=== PATIENT | female | born 1930 | race Caucasian/White ===

== ENCOUNTER 2018-09-28 21:10 | Observation (INO) | payer OTHER ==
[~2018-09-28] VITALS: Ht 152.4 cm; Wt 75.7 kg
[~2018-09-28 21:10] MED LIST: 5-HTP100 MG PO; ASPIR 8181 MG PO; ATORVASTATIN CA40 MG PO; B-121000 MC2 PO; BRILINTA90 MG PO; CALCITRIOL0.25 MCG PO; CARVEDILOL12.5 MG PO; CLONIDINE0.1 PO; COREG6.25 MG PO; COROMEGA 3 + D2.5 GM PO; COZAAR 50 MG TA50 M2 PO; FLEXERIL PO; IMDUR 30 MG TAB30 M1 PO; LIORESAL 10 MG10 MG PO; LIPITOR 20 MG T20 M1 PO; MAGOX 400400 MG PO; NITROGLYCERIN0.4 MG SUBLING; NORVASC10 MG PO; PERCOCET 10-321 EACH PO; PLAVIX 75 MG TA75 M1 PO; PRESERVISION A1 EAC2 PO; PRESERVISION T1 EACH PO; PROTONIX40 M1 PO; TYLENOL325 MG PO; VASOTEC20 MG PO; VITAMIN D1000 UNI1 PO; VITAMIN D32000 UNI1 PO; VITAMINC500 PO
[2018-09-28] MEDS ORDERED: NEURONTIN100 MG PO (21:37)
[2018-09-28 22:35] LABS: ABSOLUTE BASOPHILS 0.1 thou/uL (0.0-0.2); ABSOLUTE EOSINOPHILS 0.1 thou/uL (0.0-0.7); ABSOLUTE LYMPHOCYTES 2.8 thou/uL (0.8-5.3); ABSOLUTE MONOCYTES 0.6 thou/uL (0.0-1.2); ABSOLUTE NEUTROPHILS 5.1 thou/uL (1.6-8.1); BASOPHILS 0.7 %; EOSINOPHILS 1.5 %; HEMATOCRIT 36.6 % (37.0-47.0); HEMOGLOBIN 12.5 gm/dL (12.0-15.0); LYMPHOCYTES 32.2 %; MCH 31.5 pg (26.0-34.0); MCHC 34.2 g/dL (28.0-37.0); MCV 91.9 fL (80.0-100.0); MONOCYTES 6.9 %; MPV 7.8 fl. (7.2-11.1); NUCLEATED RBCS 0 /100WBC; PLATELET COUNT* 224 thou/uL (150-400); POLYS 58.7 %; RBC 3.98 mil/uL (4.20-5.00); RDW-CV 13.6 % (10.5-14.5); WBC 8.6 thou/uL (4.0-11.0)
[2018-09-28 22:44] LABS: ANION GAP 8 mmol/L (7-16); BUN 13 mg/dL (7-18); CALCIUM 8.7 mg/dL (8.5-10.1); CHLORIDE 101 mmol/L (98-107); CO2 27 mmol/L (21-32); GLUCOSE 108 mg/dL (70-99); POTASSIUM 3.6 mmol/L (3.5-5.1); SODIUM 136 mmol/L (136-145)
[2018-09-28 22:45] LABS: PROTIME 10.7 Seconds (9.20-11.50)
[2018-09-28 22:55] LABS: ALBUMIN 3.6 g/dL (3.4-5.0); ALKALINE PHOSPHATASE 68 U/L (46-116); NT-PRO BRAIN NAT PEPTIDE 194 pg/mL (<300); SGOT 23 U/L (15-37); SGPT 24 U/L (30-65); TOTAL BILIRUBIN 0.4 mg/dL (<0.1-1.0); TOTAL PROTEIN 6.8 g/dL (6.4-8.2); TROPONIN-I LEVEL <0.06 ng/mL (<0.06)
[2018-09-29 00:44] LABS: URINE BILIRUBIN NEGATIVE (Negative); URINE BLOOD NEGATIVE (Negative); URINE CLARITY CLEAR; URINE COLOR YELLOW; URINE GLUCOSE-RANDOM NEGATIVE (Negative); URINE KETONES NEGATIVE (Negative); URINE LEUKOCYTES-REFLEX NEGATIVE (Negative); URINE NITRITE-REFLEX NEGATIVE (Negative); URINE PROTEIN NEGATIVE (Negative); URINE UROBILINOGEN 0.2 E.U./dl (0.2-1.0)
[2018-09-29 02:53] VITALS: BP 181/59
[2018-09-29 03:08] VITALS: BP 183/67
[2018-09-29 07:51] VITALS: BP 154/60
--- NOTE | 2018-09-29 09:25 | NUR ---
ASSUMED CARE OF PT THIS AM AROUND 0715- MAXILLOFACIAL PATHOLOGY IN PLACE ORDERED, TRACING A-PACED WITH NOTEDN PACEMAKER- UPON ASSESSMENT PT NOTED TO BE RESTING IN BED- PT A&O X4- CONTINENT OF BOWEL AND BLADDER- SBA WITH TRANSFERS FOR SAFETY- LCTA, COUGH NOTED- RESP EVEN AND UN-LABORED- VSS, O2 SAT 94% ON RA- ABDOMEN SOFT/ROUND/NON-TENDER, BS X4 QUADS- LAST BM REPORTED ON PRIOR SHIFT- IV NOTED TO RIGHT HAND AND LEFT AC INTACT AND SL- 2+ BLE EDEMA NOTED, LEG ELEVATION ENCOURAGED- CARDIOLOGY HERE TO ASSESS THIS AM WITH AMLODIPINE ADDED AND HYDRALAZINE RESTARTED- OKAY TO D/C PER CARDIOLOGY THIS AFTERNOON IF BP STABLE- CTA COMPLETED WITH RESULTS NOTED IN [employer]- US OF CAROTIDS ORDERED- PT DENIES ANY C/O PAIN/DISCOMFORT AT THIS TIME- EXPRESSES WISHES TO GO HOME TODAY- CALL LIGHT AND PERSONAL BELONGINGS WITH IN REACH- HOURLY ROUNDS IN PLACE R/T SAFETY/NEEDS- ALL NEEDS MET AT THIS TIME-WCTM
[2018-09-29] MEDS ORDERED: HYDROCHLOROTHIA25 M1 PO (11:10)
[2018-09-29] MEDS ORDERED: AMLODIPINE BESYL5 M1 PO (11:10)
[2018-09-29] MEDS ORDERED: MELATONIN3 MG PO (11:12)
[2018-09-29] MEDS ORDERED: APAP650 PO (11:12)
[2018-09-29] MEDS ORDERED: CARAFATE 1 GM TA1 G1 PO (11:14)
[2018-09-29 11:40] VITALS: BP 154/60
[2018-09-29 12:00] VITALS: BP 156/60
--- NOTE | 2018-09-29 12:07 | EKG ---
[place] [address] ELECTROCARDIOGRAM REPORT Name: SUSANNEJOSELUIS AMARO Room: [address] ADM IN [facility].#: [id number] Admission: 09/29/18 Attend Phys: Herberth Lomeli Discharge: Date of : [birth year] Report #: [id number] THIS REPORT FOR: //name// [facility] ED Test Date: 2018-09-28 Test Time: 22:17:53 Pat Name: JOSELUIS SKINNER Department: Room: [facility] Gender: F Quality Assurance Supervisor Final: KEE : 1930 Requested By: Mai Garcia Order Number: [id number] MD: Juan Apple Measurements Intervals [place] Rate: 69 P: WI: 154 QRS: -19 QRSD: 99 T: 8 QT: 423 QTc: 454 Interpretive Statements Atrial-paced complexes supraventricular premature complex Borderline left axis deviation Compared to ECG 10/14/2016 07:55:34 premature complex(es) now present Electronically Signed On 09-29-2018 12:06:59 CDT by Juan Apple [email or web address] <ELECTRONICALLY SIGNED> By: Juan Apple MD, FACC 09/29/18 1206 [id number] [id number] Juan Apple MD, FAC /EPI
[2018-09-29 16:27] VITALS: BP 154/60
--- NOTE | 2018-09-29 16:46 | NUR ---
ORDERS RECIEVIED THIS SHIFT FOR OKAY TO D/C TO HOME IF US OF CAROTIDS NEGATIVE AND BP STABLE- HERE AT 1200 TO EVAL BP THAT WAS NOTED TO BE 156/60, AND STATES HE IS OKAY FOR D/C- US OF CAROTIDS RESULTED WITH NO SIGNIFICANT PLAQUING WITH ANTEGRADE FLOW IN BOTH VERTEBRAL ARTERIES- IV TO LEFT AC AND RIGHT HAND D/C'D PRIOR TO D/C, ALONG WITH FINANCE LEAD- D/C TEACHING/EDUCATION GIVEN TO PT PRIOR TO D/C, WITH ALL QUESTIONS AND CONCERNS ADDRESSED PRIOR TO D/C- WRITTEN EDUCATION ALONG WITH SCRIPTS PROVIDED TO PT PRIOR TO D/C- BELONGINGS PACKED AND ACCOUNTED FOR PER PT AND DAUGHTER PRIOR TO D/C- PT ESCORTED PER TECH VIA W/C TO VEHICLE WITH BELONGINGS; DAUGHTER AT SIDE- PT NOTED TO HAVE LEFT UNIT AT 1655-NO PROBLEMS TO NOTE AT TIME OF D/C
--- NOTE | 2018-10-03 15:03 | CON ---
[address] [address] CONSULTATION Name: JOSELUIS SKINNER Room: [address] Ricardo Balderas#: [id number] Admission: 09/29/18 Attend Phys: Herberth Lomeli Discharge: 09/29/18 Date of : [birth year] Report #: [id number] THIS REPORT FOR: //name// CC: Baltazar Craft DATE OF SERVICE: 09/29/2018 TYPE OF REPORT: Cardiology consultation. HISTORY OF PRESENT ILLNESS: The patient is an 88-year-old single white female who I was asked to see in the hospital today because of high blood pressure. The history is obtained from the patient, the daughter as well as some old records. The patient initially presented here in June of 2015. She has a history of exertional chest tightness. She was seen by Dr. Walsh. He performed an outpatient cardiac catheterization from the radial artery. She had a 95% stenosis of the ostium of the left main artery. Ejection fraction 55%. The initial plan was to consider coronary artery bypass surgery. However, after the angiogram, the patient complained of chest pain became hypotensive. It was decided to emergently intervene on the left main artery. She has a single drug-eluting stent placed in the ostium of the left main artery and dilated up to 4.5 mm. Echocardiogram showed normal left ventricular function. The patient was initially sent home on Brilinta but was eventually switched to Plavix. The patient has followed with Dr. Walsh in the Cardiology Clinic since that time. The patient then presented in September of 2016 with fatigue and high blood pressure. She had a pause of over 3 seconds in the Emergency Room. She was seen by Dr. Nielsen who placed a temporary pacemaker. I then placed a permanent MRI compatible dual-chamber Biotronik pacemaker in September 2016. She has done fairly well since that time. Unfortunately, she is not very active because of chronic back pain. She last saw Dr. Walsh in April of 2018. At that time, she was doing well and was still on aspirin and Plavix. She apparently had a stress test in April that showed no evidence of ischemia. She continues to have her pacemaker checked by her wireless transmitter. The patient denies any recent chest pain, shortness of breath, palpitations or syncope. Recently, she has felt fatigued. Her daughter took her blood pressure at home yesterday and is 190. She then brought her to the Emergency Room last night. The patient has had occasional headaches but denies any sweating spells. She also notes she has been unable to sleep recently. PAST MEDICAL HISTORY: Significant for hysterectomy, appendectomy, cervical cancer, cholecystectomy, hypertension and hyperlipidemia. No history of diabetes. MEDICATIONS: Consists of aspirin, Lipitor, carvedilol, Plavix, losartan, Protonix [place] [address] CONSULTATION Name: JOSELUIS SKINNER Room: [address] Ricardo Balderas#: [id number] Admission: 09/29/18 Attend Phys: Herberth Lomeli Discharge: 09/29/18 Date of : [birth year] Report #: [id number] ALLERGIES: She has a previous intolerance to SULFA DRUGS. FAMILY HISTORY: Her father had a heart attack. SOCIAL HISTORY: She is , lives with a daughter in [place]. No smoking or alcohol abuse. REVIEW OF SYSTEMS: She has had no history of stroke, asthma, peptic ulcer disease. She has chronic kidney disease, history of cervical cancer. No psychiatric illness. No chronic skin condition. PHYSICAL EXAMINATION: GENERAL: Elderly overweight female lying in bed. She appeared in no acute distress. VITAL SIGNS: She initially had a blood pressure 190/80 and pulse is 60. Currently, blood pressure 150/60 and pulse 60. She is afebrile. HEENT: She is anicteric. Conjunctivae pink. Mucous membranes are dry. NECK: Veins do not appear distended. CHEST: Clear to auscultation. CARDIOVASCULAR: Regular rate and rhythm. ABDOMEN: Obese, soft and nontender. No abdominal bruits. EXTREMITIES: Had no edema. Dorsalis pedis pulse 2+ bilaterally. SKIN: Warm and dry. RADIOLOGICAL DATA: Her ECG on admission showed an atrial paced rhythm at 60 beats per minute. No significant ST or T-wave changes. Her workup in the Emergency Room, she had a portable chest x-ray that showed normal heart size and clear lung tyler. CT scan of the chest using a PE protocol last night showed no evidence of pulmonary embolus. Small lung nodule and followup CT scan of the chest is recommended. LABORATORY DATA: Her lab work last night: Sodium 136, creatinine 1.0 and glucose 108. Troponin 0.06. White blood cell count 8.6 and hemoglobin 12.5. IMPRESSION AND RECOMMENDATIONS: 1. Hypertension. The patient has been on high dose of beta markel, adrenergic receptor binder and diuretic. I would consider adding a calcium markel. 2. Coronary artery disease. Previous left main stent. The patient currently on aspirin and Plavix. 3. Hyperlipidemia. The patient [place] [address] CONSULTATION Name: JOSELUIS SKINNER Room: [address] Ricardo Balderas#: [id number] Admission: 09/29/18 Attend Phys: Herberth Lomeli Discharge: 09/29/18 Date of : [birth year] Report #: [id number] 4. Chronic back pain. 5. Macular degeneration. <ELECTRONICALLY SIGNED> By: Juan Apple MD, FACC 10/03/18 1503 [id number] [id number] Apple MD, FACC /nt
== END 2018-09-29 16:57 | disposition home or self-care (01) ==
LOC: M.ERS 21:10 → M.2W 09-29 01:55 → M.TBA-ER 09-29 01:55 → M.2W 09-29 01:55
PROVIDERS: Emergency Medicine; ADMIT Internal Medicine
DX: I16.0 Hypertensive urgency (principal); I10 Essential (primary) hypertension; M54.2 Cervicalgia; I25.10 Atherosclerotic heart disease of native coronary artery without angina pectoris; G47.00 Insomnia, unspecified; M46.90 Unspecified inflammatory spondylopathy, site unspecified; K21.9 Gastro-esophageal reflux disease without esophagitis; R06.00 Dyspnea, unspecified; R07.9 Chest pain, unspecified; H35.30 Unspecified macular degeneration; E78.5 Hyperlipidemia, unspecified; M79.605 Pain in left leg; Z88.2 Allergy status to sulfonamides; Z95.0 Presence of cardiac pacemaker; Z90.49 Acquired absence of other specified parts of digestive tract; Z95.5 Presence of coronary angioplasty implant and graft; Z98.890 Other specified postprocedural states; Z79.899 Other long term (current) drug therapy; Z79.82 Long term (current) use of aspirin; Z90.710 Acquired absence of both cervix and uterus; Z85.41 Personal history of malignant neoplasm of cervix uteri